=== PATIENT | female | born 1975 | race Caucasian/White ===

== ENCOUNTER 2025-05-19 19:19 | Emergency (ER) | payer OTHER, BC ==
[~2025-05-19] VITALS: Ht 177.8 cm; Wt 81.6 kg
[2025-05-19] MEDS ORDERED: Acetaminophen/Oxycodone 5 MG/325 MG TABLET PO ONE ×2 (19:25→21:10)
[2025-05-19] MEDS ORDERED: LEXAPRO20 MG PO (19:27)
[2025-05-19] MEDS ORDERED: WELLBUTRIN SR100 MG PO (19:27)
[2025-05-19] MEDS ORDERED: AMLODIPINE BESY10 MG PO (19:38)
[2025-05-19] MEDS ORDERED: PERCOCET 5-3251 EACH PO (21:02)
== END 2025-05-19 21:23 | disposition home or self-care (01) ==
LOC: ED 19:19
DX: S22.31XA Fracture of one rib, right side, initial encounter for closed fracture (principal); S42.002A Fracture of unspecified part of left clavicle, initial encounter for closed fracture; E78.5 Hyperlipidemia, unspecified; Z79.899 Other long term (current) drug therapy; V48.6XXA Car passenger injured in noncollision transport accident in traffic accident, initial encounter; Y93.89 Activity, other specified; Y92.488 Other paved roadways as the place of occurrence of the external cause; Y99.8 Other external cause status